=== PATIENT | male | born 1960 | race Caucasian/White ===

== ENCOUNTER 2017-10-19 06:09 | Day surgery (SDC) | payer OTHER ==
[2017-10-19] MEDS ORDERED: MIDAZOLAM 1 MG/ML 2 ML INJ (08:09)
[2017-10-19] MEDS ORDERED: FENTAnyl 50 MCG/ML VIAL (08:09)
[2017-10-19] MEDS ORDERED: LIDOCAINE 4% SOLUTION 50 ML BTL (10:06)
== END 2017-10-19 11:19 | disposition home or self-care (01) ==
LOC: GIL 06:09
DX: Z12.11 Encounter for screening for malignant neoplasm of colon (principal); K57.90 Diverticulosis of intestine, part unspecified, without perforation or abscess without bleeding; I10 Essential (primary) hypertension
CPT/HCPCS: 45378; 88305